=== PATIENT | male | born 1975 | race Caucasian/White ===

== ENCOUNTER 2017-08-19 16:48 | Emergency (ER) | payer BC, OTHER ==
[~2017-08-19] VITALS: Ht 177.8 cm; Wt 100.0 kg
[2017-08-19 16:48] VITALS: BP 127/79
[2017-08-19] MEDS ORDERED: KEFL500C17 PO (17:16)
[2017-08-19] MEDS ORDERED: metroNIDAZOLE 500 MG in APPROPRIATE DILUENT 1 EA IV ONE (18:45)
[2017-08-19 19:21] LABS: BASO % 0.3 % (0.0-1.0); EOS # 0.2 10^3/uL (0.0-0.50); EOS % 2.5 % (0.0-3.0); IMMATURE GRANULOCYTE % 0.8 % (0-0); LYMPH # 2.5 10^3/uL (1.5-4.5); MEAN CORPUSCULAR HEMOGLOBIN 31.3 pg (27.0-33.0); MEAN CORPUSCULAR HGB CONC 33.5 g/dl (32.0-36.5); MEAN CORPUSCULAR VOLUME 93.4 fl (80.0-96.0); MONO # 0.6 10^3/uL (0.0-0.8); NEUTROPHILS # 4.2 10^3/uL (1.8-7.7); NEUTROPHILS % 55.4 % (36.0-66.0); PLATELET COUNT, AUTOMATED 253 10^3/uL (150-450); RED CELL DISTRIBUTION WIDTH 11.4 % (11.5-14.5); WHITE BLOOD COUNT 7.6 10^3/uL (4.0-10.0)
[2017-08-19 19:30] LABS: ANION GAP 7 MEQ/L (8-16); BLOOD UREA NITROGEN 23 MG/DL (7-18); CALCIUM LEVEL 8.8 MG/DL (8.5-10.1); CARBON DIOXIDE LEVEL 28 MEQ/L (21-32); CHLORIDE LEVEL 104 MEQ/L (98-107); CREATININE FOR GFR 1.02 MG/DL (0.70-1.30); GLOMERULAR FILTRATION RATE > 60.0 (>60); GLUCOSE, FASTING 96 MG/DL (70-105); POTASSIUM SERUM 3.9 MEQ/L (3.5-5.1); SODIUM LEVEL 139 MEQ/L (136-145)
[2017-08-19] MEDS ORDERED: FLAG500T PO (19:55)
[2017-08-19] MEDS ORDERED: BACT800T5 PO (19:55)
== END 2017-08-19 20:10 | disposition home or self-care (01) ==
LOC: M ED 16:48
DX: L03.317 Cellulitis of buttock (principal); L02.31 Cutaneous abscess of buttock

== ENCOUNTER 2019-12-22 19:29 | Emergency (ER) | payer BC ==
[~2019-12-22] VITALS: Ht 177.8 cm; Wt 108.2 kg
[~2019-12-22 19:29] MED LIST: BACT800T5 PO; FLAG500T PO; KEFL500C17 PO
[2019-12-22] MEDS ORDERED: RABIES IMMUNE GLOBULIN 1500 INTERNATIONAL UNIT/5ML VIAL (90375) IM ONE ×2 (20:30→21:00)
[2019-12-22] MEDS ORDERED: RABIES VACCINE HUMAN 2.5 INTERNATIONAL UNITS/ML VIAL (90675) IM ONE (20:30)
[2019-12-22] MEDS ORDERED: ADACEL/BOOSTRIX VACCINE (DIPHTH/PERTUSS/ACELL/TETANUS)0.5ML SYR (90715) IM ONE (20:30)
[2019-12-22] MEDS ORDERED: RABIES IMMUNE GLOBULIN 300 INTERNATIONAL UNITS/1ML VIAL (90375) IM ONE (21:00)
[2019-12-22 21:10] VITALS: BP 121/65
== END 2019-12-22 21:11 | disposition home or self-care (01) ==
LOC: M ED 19:29
DX: Z20.3 Contact with and (suspected) exposure to rabies (principal); Z23 Encounter for immunization

== ENCOUNTER 2019-12-25 19:39 | Emergency (ER) | payer BC, OTHER ==
[~2019-12-25] VITALS: Ht 177.8 cm; Wt 108.0 kg
[2019-12-25 19:39] VITALS: BP 135/92
[2019-12-25] MEDS ORDERED: RABIES VACCINE HUMAN 2.5 INTERNATIONAL UNITS/ML VIAL (90675) IM ONE (19:45)
== END 2019-12-25 20:20 | disposition home or self-care (01) ==
LOC: M ED 19:39
DX: Z20.3 Contact with and (suspected) exposure to rabies (principal); Z23 Encounter for immunization

== ENCOUNTER 2019-12-29 19:45 | Emergency (ER) | payer BC, OTHER ==
[~2019-12-29] VITALS: Ht 177.8 cm; Wt 108.5 kg
[2019-12-29 19:48] VITALS: BP 122/82
[2019-12-29] MEDS ORDERED: RABIES VACCINE HUMAN 2.5 INTERNATIONAL UNITS/ML VIAL (90675) IM ONE (20:00)
== END 2019-12-29 20:18 | disposition home or self-care (01) ==
LOC: M ED 19:45
DX: Z20.3 Contact with and (suspected) exposure to rabies (principal); Z23 Encounter for immunization

== ENCOUNTER 2020-01-05 17:17 | Emergency (ER) | payer BC, OTHER ==
[~2020-01-05] VITALS: Ht 177.8 cm; Wt 106.1 kg
[2020-01-05 17:18] VITALS: BP 125/89
[2020-01-05] MEDS ORDERED: RABIES VACCINE HUMAN 2.5 INTERNATIONAL UNITS/ML VIAL (90675) IM ONE (17:30)
== END 2020-01-05 18:03 | disposition home or self-care (01) ==
LOC: M ED 17:17
DX: Z23 Encounter for immunization (principal); Z20.3 Contact with and (suspected) exposure to rabies

== ENCOUNTER → 2021-07-18 | Outpatient (CLI) | payer BC ==
--- NOTE | 2021-07-18 14:34 | REP ---
INDICATION: RT TESTICULAR PAIN COMPARISON: None. TECHNIQUE: Leblanc scale and color Doppler evaluation using linear and curved array transducer with color Doppler evaluation. FINDINGS: The testicles and epididymi are relatively normal in contour, size, echogenicity, vascularity and overall appearance. Incidental 3 mm left epididymal head cyst noted. There is no evidence for intratesticular mass lesion, infectious/inflammatory process, or torsion. Small bilateral hydroceles are nonspecific. Few mildly prominent right sided vessels are identified measuring up to 5 mm on Valsalva. Right testicle measures 4.0 x 2.5 x 3.5 cm. Left testicle measures 4.3 x 2.3 x 3.0 cm. IMPRESSION: 1. Normal testicles and epididymi. 2. Early right varicocele cannot be excluded. 3. Relatively incidental small bilateral hydroceles and 3 mm left epididymal head cyst noted. <Electronically signed by Alexandre Morocho > 07/18/21 [id number]
== END ==
LOC: M RAD 13:46
PROVIDERS: ATTEND Physician Assistant Medical
DX: N50.811 Right testicular pain (principal); N50.3 Cyst of epididymis; N43.3 Hydrocele, unspecified

== ENCOUNTER → 2022-12-17 | Outpatient (CLI) | payer BC | LOC: M LABSMTC 07:37 | PROVIDERS: ATTEND Anesthesiology | DX: Z01.812 Encounter for preprocedural laboratory examination (principal); Z11.52 Encounter for screening for COVID-19 ==

== ENCOUNTER 2022-12-20 08:49 | Day surgery (SDC) | payer BC ==
[~2022-12-20] VITALS: Ht 177.8 cm; Wt 103.8 kg
[~2022-12-20 08:49] MED LIST changes: +LIDOCAINE 2% 100MG/5ML SDV (FOR ANES.) As Ordered ONE; +NS 1,000 ML IV ONE; +propofoL 200 MG/20 ML VIAL As Ordered ONE
[2022-12-20 11:32] VITALS: BP 121/77
== END 2022-12-20 11:34 | disposition home or self-care (01) ==
LOC: M OPP 08:49
PROVIDERS: ATTEND Internal Medicine Gastroenterology
DX: Z12.11 Encounter for screening for malignant neoplasm of colon (principal); K63.5 Polyp of colon; K64.8 Other hemorrhoids; K57.30 Diverticulosis of large intestine without perforation or abscess without bleeding

== ENCOUNTER → 2023-10-09 | Outpatient (REF) | payer BC ==
[~2023-10-09] MED LIST changes: -LIDOCAINE 2% 100MG/5ML SDV (FOR ANES.) As Ordered ONE; -NS 1,000 ML IV ONE; -propofoL 200 MG/20 ML VIAL As Ordered ONE
[2023-10-09 13:08] LABS: BASO % 0.3 % (0.0-1.0); EOS # 0.1 10^3/uL (0.0-0.5); EOS % 1.5 % (0.0-3.0); HEMATOCRIT 47.9 % (42.0-52.0); HEMOGLOBIN 15.9 g/dl (13.5-17.5); LYMPH # 2.9 10^3/uL (1.5-5.0); MEAN CORPUSCULAR HEMOGLOBIN 31.7 pg (27.0-33.0); MEAN CORPUSCULAR HGB CONC 33.2 g/dl (32.0-36.5); MEAN CORPUSCULAR VOLUME 95.6 fl (80.0-96.0); MONO # 0.5 10^3/uL (0.0-0.8); MONO % 7.8 % (2.0-8.0); NEUTROPHILS # 3.1 10^3/uL (1.5-8.5); NEUTROPHILS % 46.8 % (36.0-66.0); PLATELET COUNT, AUTOMATED 255 10^3/uL (150-450); RED BLOOD COUNT 5.01 10^6/uL (4.30-6.10); WHITE BLOOD COUNT 6.7 10^3/uL (4.0-10.0)
[2023-10-09 13:37] LABS: ALBUMIN 4.6 G/DL (3.2-5.2); ALKALINE PHOSPHATASE 42 U/L (46-116); ALT/SGPT 57 U/L (7.0-40); AST/SGOT 30 U/L (<34); BILIRUBIN,TOTAL 0.9 MG/DL (0.3-1.2); BLOOD UREA NITROGEN 19 MG/DL (9-23); CALCIUM LEVEL 9.6 MG/DL (8.5-10.1); CARBON DIOXIDE LEVEL 30 MMOL/L (20-31); CHLORIDE LEVEL 102 MMOL/L (98-107); CHOLESTEROL LEVEL 205 MG/DL (<200); CHOLESTEROL RISK RATIO 3.92 (<5); CREATININE FOR GFR 0.84 MG/DL (0.70-1.30); GLOMERULAR FILTRATION RATE > 60.0 (>60); GLUCOSE, FASTING 84 MG/DL (60-100); HDL CHOLESTEROL 52.2 MG/DL (>40); LDL CHOLESTEROL 126.4 MG/DL (<100); NON-HDL-C 152.8 MG/DL; POTASSIUM SERUM 4.2 MMOL/L (3.5-5.1); SODIUM LEVEL 139 MMOL/L (136-145); TOTAL PROTEIN 7.6 G/DL (5.7-8.2); TRIGLYCERIDES LEVEL 132 MG/DL (<150)
== END ==
LOC: M LAB REF 12:08
PROVIDERS: ATTEND Internal Medicine
DX: Z00.00 Encounter for general adult medical examination without abnormal findings (principal)